=== PATIENT | female | born 1980 | race Caucasian/White ===

== ENCOUNTER 2016-07-30 08:11 | Emergency (ER) | payer SELFPAY ==
[~2016-07-30] VITALS: Ht 152.4 cm; Wt 108.2 kg
[~2016-07-30 08:11] MED LIST: CYMBALTA60 MG PO; LAMICTAL; TOPROL XL100 MG PO
[2016-07-30] MEDS ORDERED: LAMOTRIGINE200 MG PO (08:25)
[2016-07-30] MEDS ORDERED: LOSARTAN POTASS25 MG PO (08:25)
[2016-07-30] MEDS ORDERED: METOPROLOL SUC100 MG PO (08:25)
[2016-07-30] MEDS ORDERED: KEFLEX500 MG PO (08:26)
[2016-07-30] MEDS ORDERED: CYMBALTA60 MG PO (08:26)
[2016-07-30 08:53] LABS: EOSINOPHIL (%) 2.8 % (0-5); EOSINOPHIL COUNT 0.2 K/uL (0-0.3); HEMATOCRIT 38.8 % (36.0-46.0); IMMATURE GRANULOCYTE (%) 0.3 % (0.0-0.7); IMMATURE GRANULOCYTE COUNT 0.2 K/uL; LYMPHOCYTE COUNT 1.6 K/uL (1.0-2.8); MCH 28.4 PG (29.0-34.0); MCHC 33.2 G/DL (30.0-36.0); MCV 85.5 FL (83-99); MEAN PLAT.VOLUME 8.3 uM^3 (9.5-12.4); MONOCYTE (%) 5.2 % (3-12); MONOCYTE COUNT 0.4 K/uL (0-0.8); NEUTROPHIL (%) 68.9 % (45-76); NEUTROPHIL COUNT 4.9 K/uL (1.8-6.4); PLATELET COUNT 374 K/uL (156-360); RBC DIS.WIDTH-CV 13.3 % (11.8-14.6); RBC DIS.WIDTH-SD 40.7 % (39-53); RED BLOOD COUNT 4.54 M/uL (3.80-5.20); WHITE BLOOD COUNT 7.1 K/uL (4.1-10.2)
[2016-07-30 09:03] LABS: CHLORIDE 107 mEq/L (99-109); SODIUM 138 mEq/L (136-147)
[2016-07-30 09:05] LABS: GLUCOSE 108 mg/dL (70-99)
[2016-07-30 09:06] LABS: ANION GAP 9 MEQ/L (2-14)
[2016-07-30 09:07] LABS: TOTAL BILIRUBIN 0.3 mg/dL (0.0-1.0)
[2016-07-30 09:08] LABS: ALKALINE PHOSPHATASE 77 IU/L (3-129)
[2016-07-30 09:09] LABS: GFR ESTIMATE (CALCULATED) > 59 mL/min/
[2016-07-30 09:10] LABS: UREA NITROGEN (BUN) 12 mg/dL (9-23)
[2016-07-30 09:18] LABS: QUANTITATIVE HCG < 4.0 MIU/ML
[2016-07-30] MEDS ORDERED: CLINDAMYCIN HC150 MG PO (09:44)
[2016-07-30 10:02] VITALS: BP 150/109
== END 2016-07-30 10:08 | disposition home or self-care (01) ==
LOC: EME 08:11
PROVIDERS: Physician Assistant
DX: L03.114 Cellulitis of left upper limb (principal); F17.200 Nicotine dependence, unspecified, uncomplicated
CPT/HCPCS: 80053; 83605; 84702; 85025; 87040; 87801; 99281; 99284

== ENCOUNTER 2017-09-17 08:38 | Day surgery (SDC) | payer BC ==
[~2017-09-17] VITALS: Ht 152.4 cm; Wt 106.5 kg
[~2017-09-17 08:38] MED LIST changes: +CLINDAMYCIN HC150 MG PO; +KEFLEX500 MG PO; +LAMOTRIGINE200 MG PO; +LOPRESSOR100 M1 PO; +LOSARTAN POTASS25 MG PO; +METOPROLOL SUC100 MG PO; +POLY-VITAMIN1 EACH PO; +ZOVIRAX400 MG PO
[2017-09-17 09:28] VITALS: BP 124/65
[2017-09-17 13:00] VITALS: BP 139/91
[2017-09-17 13:29] VITALS: BP 134/79
== END 2017-09-17 13:42 | disposition home or self-care (01) ==
LOC: SDC 08:38
DX: N93.0 Postcoital and contact bleeding (principal); N84.1 Polyp of cervix uteri; N92.1 Excessive and frequent menstruation with irregular cycle; Z87.891 Personal history of nicotine dependence; R87.810 Cervical high risk human papillomavirus (HPV) DNA test positive; Z91.013 Allergy to seafood
CPT/HCPCS: 88305; J1100; J1170; J1885; J2405; J2765; J3010